=== PATIENT | female | born 1970 | race African-American/Black ===

== ENCOUNTER → 2016-11-24 | Outpatient (CLI) | payer BC ==
[~2016-11-24] MED LIST: [UNRECOGNIZED DRUG - OTHER]
--- NOTE | ~2016-11-24 | MY11 ---
[facility] A Service of [facility] RADIOLOGY TEXT RESULTS PATIENT: JANENE COLUNGA LOCATION: [facility] : 68 UNIT #: [id number] AGE: [address]: Shaan Zhu SEX: F ORDER DR: [id number] [facility] [address] [place], [place] [address] [id number] O MR#: [id number] #: [id number] NAME: JANENE COLUNGA : 1970 SEX: F STUDY DATE/TIME: 11/24/2016 11:07 UNIT: [facility] ROOM: STUDY DESCRIPTION: MY Mammogram Screening Dig Blu Attending Physician: Shaan Zhu A.P.R.N. Ordering Physician: Shaan Zhu A.P.R.N. Primary Care Physician: Shaan Zhu A.P.R.N. MEDICAL IMAGING REPORT This report is preliminary unless electronic signature is present EXAM Digital screening mammogram, 11/24/2016 HISTORY 46-year-old woman positive family history, grandmother age 70. Annual screen. COMPARISON Prior mammogram [place] date 09/21/2012. FINDINGS Digital imaging of each breast was completed utilizing screening protocol. Review includes FDA-approved CAD device. Breast parenchyma is fatty replaced and stable. There is no breast mass. There are no interval occurring microcalcifications and no suspicious architectural deformity. IMPRESSION Negative mammogram. Annual screening recommended. Patients over the age of 40 are entered into a reminder system with target due date for the next mammogram. A result letter will also be sent to the patient. BIRADS: 1 Negative Dictated by... Chad Wise M.D. THIS IS AN ELECTRONICALLY VERIFIED REPORT Chad Wise M.D. at 11/25/2016 8:06 AM JBB/psc [facility] A Service of [facility] RADIOLOGY TEXT RESULTS PATIENT: JANENE COLUNGA LOCATION: [facility] : 68 UNIT #: [id number] AGE: [address]: Shaan Zhu SEX: F ORDER DR: TD: 11/24/2016 23:57 JOB #: [id number] MEDICAL IMAGING REPORT Page 1 of 1 COPY
== END | disposition home or self-care (01) ==
LOC: CWCC 10:30
DX: Z12.31 Encounter for screening mammogram for malignant neoplasm of breast (principal); Z80.3 Family history of malignant neoplasm of breast
CPT/HCPCS: G0202

== ENCOUNTER → 2017-02-11 | Outpatient (CLI) | payer BC ==
--- NOTE | ~2017-02-11 | US49 ---
[facility] A Service [facility] RADIOLOGY TEXT RESULTS PATIENT: JANENE COLUNGA LOCATION: [facility] : 68 UNIT #: [id number] AGE: [address]: Ari Lawton MD SEX: F ORDER DR: [id number] [place] [id number] [facility] [address]. [place], [place] [address] [id number] O MR#: [id number] Acc #: [id number] NAME: JANENE COLUNGA : 1970 SEX: F STUDY DATE/TIME: 02/11/2017 15:29 UNIT: [facility] ROOM: STUDY DESCRIPTION: US Extremity Non Vasc Complete Attending Physician: Ari Lawton M.D. Referring Physician: Ari Lawton M.D. Ordering Physician: Ari Lawton M.D. Primary Care Physician: Ari Lawton M.D. MEDICAL IMAGING REPORT This report is preliminary unless electronic signature is present EXAM Ultrasound of the left leg soft tissue. INDICATION Palpable lump overlying the left extremity since July 2000. TECHNIQUE Hidalgo-scale color Doppler sonographic images were obtained through the area of concern. FINDINGS Crane Ladle Person measures a lesion at up to 3.9 x 1.0 x 2.2 cm within the area of concern. It is difficult to see a discrete nodule on the submitted images. Given history, lipoma would be a consideration. Again not convinced that this is demonstrated on the submitted images. IMPRESSION Crane Ladle Person measures an isoechoic area within the area of concern. I am uncertain if this reflects a true lesion. I would suggest further evaluation with MRI. Dictated by... Trudy Coello M.D. THIS IS AN ELECTRONICALLY VERIFIED REPORT Trudy Coello M.D. at 02/14/2017 10:50 AM AFF/ea TD: 02/13/2017 15:17 JOB #: [id number] [facility] A Service [facility] RADIOLOGY TEXT RESULTS PATIENT: JANENE COLUNGA LOCATION: [facility] #: [id number] : 68 UNIT #: [id number] AGE: [address]: Ari Lawton MD SEX: F ORDER DR: MEDICAL IMAGING REPORT Page 1 of 1 COPY
== END | disposition home or self-care (01) ==
LOC: CGUS 14:34
DX: L98.9 Disorder of the skin and subcutaneous tissue, unspecified (principal)
CPT/HCPCS: 76881